=== PATIENT | male | born 1935 | race Caucasian/White ===

== ENCOUNTER 2022-03-08 12:37 | Inpatient (IN) | payer OTHER ==
[~2022-03-08] VITALS: Ht 167.6 cm; Wt 68.1 kg
[2022-03-08] MEDS ORDERED: BACITRACIN ZINC OINT UDPKT TOP ONE (13:15)
[2022-03-08] MEDS ORDERED: SODIUM CHLORIDE 0.9% 1,000 ML IV ONE (13:15)
[2022-03-08] MEDS ORDERED: TETANUS, DIPHTHERIA, PERTUSSIS VAC/PF 0.5ML (>10YR OLD) IM ONE (13:15)
[2022-03-08 13:42] LABS: BASOPHILS % 0.5 % (0.0-2.0); EOSINOPHILS % 6.4 % (0.0-5.0); HEMATOCRIT. 40.8 % (42.0-52.0); HEMOGLOBIN. 14.1 g/dL (14.0-18.0); LYMPHOCYTES % 25.7 % (20.0-50.0); MEAN CORPUSCULAR HEMOGLOBIN 33.8 pg (28.0-32.0); MEAN CORPUSCULAR VOLUME 97.6 fL (80.0-94.0); MEAN PLATELET VOLUME 9.6 fl (7.4-10.4); MONOCYTES % 13.1 % (2.0-8.0); NEUTROPHILS % 54.3 % (40.0-76.0); PLATELET 122 x1000/uL (130-400); RED BLOOD CELL COUNT 4.18 mill/uL (4.7-6.1); RED CELL DISTRIBUTION WIDTH 12.8 % (11.6-14.6)
[2022-03-08 13:48] LABS: CHLORIDE 107 mEq/L (98-107)
[2022-03-08 13:50] LABS: PARTIAL THROMBOPLASTIN TIME 29.5 sec (23.4-31.0); PROTHROMBIN TIME 10.9 sec (9.6-11.0)
[2022-03-08] MEDS ORDERED: ASPIRIN 325MG EC TABLET PO ONE (14:45)
[2022-03-08 17:00] VITALS: BP 142/88
[2022-03-08 17:10] VITALS: BP 142/88
[2022-03-08] MEDS ORDERED: ZOLP5TAB8 PO (17:41)
[2022-03-08] MEDS ORDERED: FEXO-270 PO (17:41)
[2022-03-08] MEDS ORDERED: FLUT1DIS2 INH (17:41)
[2022-03-08] MEDS ORDERED: ALBU90AE INH (17:41)
[2022-03-08] MEDS ORDERED: CARB-32 MT (17:41)
[2022-03-08] MEDS ORDERED: GABA-529 PO (17:41)
[2022-03-08] MEDS ORDERED: CLONIDINE 0.1MG TABLET PO PRN (18:15)
[2022-03-08] MEDS ORDERED: ZOLPIDEM TARTRATE 5MG TABLET PO PRN (18:15)
[2022-03-08] MEDS ORDERED: HYDROCODONE/ACETAMINOPHEN 5/325MG TABLET PO PRN (18:15)
[2022-03-08] MEDS ORDERED: MAGNESIUM/ALUMINUM HYDROXIDE/SIMETHICONE 30ML UDC PO PRN (18:15)
[2022-03-08] MEDS ORDERED: ALBUTEROL 6.7GM HFA INHALER ORI PRN (18:15)
[2022-03-08] MEDS ORDERED: NALOXONE HCL 0.4MG/ML VIAL IV PRN (18:15)
[2022-03-08] MEDS ORDERED: ACETAMINOPHEN 325MG TABLET PO PRN (18:15)
[2022-03-08] MEDS ORDERED: ONDANSETRON HCL 4MG/2ML INJ IV PRN (18:15)
[2022-03-08] MEDS: SODIUM CHLORIDE 0.9% 1,000 ML IV SCH (18:46)
[2022-03-08] MEDS: GABAPENTIN 100MG CAPSULE PO SCH (18:46)
[2022-03-08 20:00] VITALS: BP 136/79
[2022-03-08] MEDS ORDERED: ENOXAPARIN 40MG/0.4ML SYR SUBCUT SCH (20:00)
[2022-03-08] MEDS: CARBIDOPA/LEVODOPA 25/100MG TABLET PO SCH (21:45)
[2022-03-09] VITALS (7 sets, daily range): BP systolic 110–159; BP diastolic 69–92
[2022-03-09] MEDS: CARBIDOPA/LEVODOPA 25/100MG TABLET PO SCH ×2 (06:03→13:18)
[2022-03-09 06:48] LABS: BASOPHILS % 0.4 % (0.0-2.0); HEMATOCRIT. 42.7 % (42.0-52.0); HEMOGLOBIN. 14.8 g/dL (14.0-18.0); LYMPHOCYTES % 23.6 % (20.0-50.0); MEAN CORPUSCULAR VOLUME 98.2 fL (80.0-94.0); MEAN PLATELET VOLUME 9.1 fl (7.4-10.4); MONOCYTES % 11.9 % (2.0-8.0); NEUTROPHILS % 57.1 % (40.0-76.0); PLATELET 101 x1000/uL (130-400); RED BLOOD CELL COUNT 4.35 mill/uL (4.7-6.1); RED CELL DISTRIBUTION WIDTH 13.1 % (11.6-14.6)
[2022-03-09 07:09] LABS: CHLORIDE 107 mEq/L (98-107)
[2022-03-09 07:26] LABS: HDL CHOLESTEROL 33 mg/dL (40-59); LDL CHOLESTEROL 91 mg/dL (5-100); T4 FREE 0.88 ng/dL (0.76-1.46)
[2022-03-09] MEDS: GABAPENTIN 100MG CAPSULE PO SCH ×3 (09:25→16:45)
[2022-03-09] MEDS: SODIUM CHLORIDE 0.9% 1,000 ML IV SCH (13:19)
[2022-03-09 13:24] LABS: CLARITY URINE CLEAR (CLEAR); COLOR URINE YELLOW (YELLOW); KETONES URINE NEGATIVE (NEGATIVE); LEUKOCYTE ESTERASE URINE NEGATIVE (NEGATIVE); NITRITE URINE NEGATIVE (NEGATIVE); OCCULT BLOOD URINE TRACE (NEGATIVE); PROTEIN URINE NEGATIVE (NEGATIVE); SPECIFIC GRAVITY URINE 1.006 (1.005-1.030); UROBILINOGEN URINE 0.2 E.U./dL (0.2-1.0)
[2022-03-09 13:44] LABS: *AMPHETAMINES SCREEN URINE NEGATIVE (NEGATIVE); *BARBITURATES SCREEN URINE NEGATIVE (NEGATIVE); *BENZODIAZEPINES SCREEN URINE NEGATIVE (NEGATIVE); *COCAINE SCREEN URINE NEGATIVE (NEGATIVE); CANNABINOID URINE SCREEN NEGATIVE (NEGATIVE); METHADONE URINE SCREEN NEGATIVE (NEGATIVE); OPIATES URINE SCREEN NEGATIVE (NEGATIVE); PHENCYCLIDINE URINE SCREEN NEGATIVE (NEGATIVE)
[2022-03-09] MEDS ORDERED: FLUDROCORTISONE ACETATE 0.1MG TABLET PO SCH (15:45)
== END 2022-03-09 19:40 | disposition home or self-care (01) | DRG 74 ==
LOC: ER 12:37 → 7WST 14:48 → EDBEDREQTM 14:52 → EDBEDREQ 14:52 → ENRESERV 16:12
PROVIDERS: ADMIT Internal Medicine; ATTEND Internal Medicine
DX: G90.8 Other disorders of autonomic nervous system (principal); I95.1 Orthostatic hypotension; M19.90 Unspecified osteoarthritis, unspecified site; I10 Essential (primary) hypertension; G20 Parkinson's disease; E86.0 Dehydration; J42 Unspecified chronic bronchitis; S01.311A Laceration without foreign body of right ear, initial encounter; W18.39XA Other fall on same level, initial encounter; Y93.89 Activity, other specified; Y92.89 Other specified places as the place of occurrence of the external cause; Y99.8 Other external cause status
CPT/HCPCS: 36415; 71045; 80048; 80053; 80061; 80076; 80305; 81003; 83735; 83880; 84100; 84439; 84443; 84484; 85025; 86850; 86900; 90715; 93005; 93306; 93880; 93970; 97162; 99285; J1650; J7030